=== PATIENT | male | born 1995 | race Caucasian/White ===

== ENCOUNTER 2017-04-18 22:03 | Emergency (ER) | payer SELFPAY ==
[2017-04-18 22:24] VITALS: BP 153/73
[2017-04-18] MEDS ORDERED: BUPIVACAINE HCL 0.5 % INJ/PF 30 ML SDV INJ ONE (22:52)
[2017-04-18] MEDS ORDERED: PENICILLIN V POTASSIUM 500 MG TABLET PO ONE (22:52)
[2017-04-18] MEDS ORDERED: LIDOCAINE 2% VISCOUS SOLN 20 ML UDCUP PO ONE (23:12)
--- NOTE | 2017-04-18 23:13 | ER Document Report ---
HPI - HPI Patient complains to provider of: Toothache Pain Level: 5 Context: Patient is a 21-year-old male presents emergency department complaining of left upper jaw pain that started this morning. Patient has been taking Tylenol Motrin to today. Denies any fevers or chills, foul odor or foul drainage, difficulty swallowing, difficulty breathing or significant facial swelling. Patient is a current smoker. Past Medical History - Social History Smoking Status: Unknown if Ever Smoked Family History: Reviewed & Not Pertinent Patient has suicidal ideation: No Patient has homicidal ideation: No Renal/ Medical History: Denies: Hx Peritoneal Dialysis Past Surgical History: Reports: Hx Orthopedic Surgery - LUE - Immunizations Hx Diphtheria, Pertussis, Tetanus Vaccination: Yes Vertical Provider Document - CONSTITUTIONAL Agree With Documented VS: Yes Notes: PHYSICAL EXAM GENERAL: Alert, interacts well. HEENT: NCAT, pale conjunctiva, extraocular movements intact, pupils PERRL. Tenderness of tooth #18 with surrounding gingival inflammation without any evidence of abscess. MMM, Uvula midline. Airway patent. No evidence of tonsillar enlargement, peritonsillar abscess, retropharyngeal abscess. LUNGS: Clear to auscultation bilaterally, no wheezes, rales, or rhonchi. No respiratory distress. HEART: Regular rate and rhythm. No murmurs, gallops, or rubs. NEUROLOGICAL: Alert and oriented x4. Normal speech. PSYCH: Normal affect, normal mood. SKIN: Warm, dry, normal turgor. No rashes or lesions noted. - INFECTION CONTROL TRAVEL OUTSIDE OF THE U.S. IN LAST 30 DAYS: No - RESPIRATORY O2 Sat by Pulse Oximetry: 98 Course - Re-evaluation Re-evalutation: 04/18/17 23:12 Patient is a 21-year-old male presents with a toothache. He is hemodynamically stable, no acute distress afebrile. Presentation is most consistent with likely an infected tooth. Airway is patent. Vitals within normal limits. Patient is able swallow without any difficulty. There is no significant facial swelling. Patient will be started on antibiotics. I've instructed to follow-up with dentistry as earliest ability for definitive management. Return precautions and follow-up recommendations have been discussed at length. - Vital Signs Vital signs: Temp Pulse Resp BP Pulse Ox 98.9 F 78 18 153/73 H 98 04/18/17 22:22 04/18/17 22:22 04/18/17 22:22 04/18/17 22:22 04/18/17 22:22 Procedures - Additional Procedures Dental block Additional Procedures: Other - Patient received a left upper infra alveolar dental block utilizing 5 cc of 0.5% bupivacaine with significant improvement of his pain and no complications Discharge - Discharge Clinical Impression: Toothache Condition: Good Disposition: HOME, SELF-CARE Additional Instructions: TOOTHACHE: Your pain is due to dental decay. The tooth must be repaired in order for you to feel better. You will, therefore, be referred to a dentist. We do not have dentists on the staff at [facility]. Severe swelling or drainage around a tooth usually means a dental abscess. This also requires evaluation and treatment by the dentist, but antibiotics may be prescribed while awaiting dental treatment. You should be rechecked immediately if you develop major swelling of the face, increasing pain, a lump in the jaw or gums, headache, difficulty swallowing, or fever. PENICILLIN V K: You have been given a prescription for Penicillin VK. Your physician has determined that this is the best antibiotic for your condition. Pen VK can be taken with meals, however more of the antibiotic gets into the bloodstream if it's taken on an empty stomach. Penicillin usually has no side effects. However, allergy to penicillins is common. If you have had an allergic reaction to any drug of the penicillin family, you should never take any other penicillin. Notify your doctor at once if you develop hives, itching, swelling, faintness, or shortness of breath. FOLLOW-UP CARE: You have been referred for follow-up care to the dentists listed below. Call the dentists office for an appointment as you were instructed or within the next two days. If you experience worsening or a significant change in your symptoms, notify the physician immediately or return to the Emergency Department at any time for re-evaluation. [facility] [address] [place], [place] Tuesday mornings, by appointment [facility] [address] [place] [address] [facility] [place] [address] [facility] [address] [facility] [address] [facility] [address] [facility] [email or web address] [address] [place] [address] Tuesday- 8:00am to 5:00 pm Will see patients from other [facility]. Charges based on income and family size and accepts Medicare, Medicaid, and Insurances Will pull molars [facility] [phone] Hours of Operation 8:00 am - 4:30 pm weekdays The following dental offices accept Medicaid: [facility] Dr. Douglass Dr. [place] Dr. Naqvi Dr. Blair Ran Mosley, Ceci, and Berta oral surgery Dr. Chaudhry ([place]) Dr. Queen ([place]) [facility] Drs. Fischer and Josias ([place]) Dr. Burden ([place]) [facility] Dr. Brasher ([place]) Drs. Mccall and ([place]) Medicaid Care Line Prescriptions: Penicillin V Potassium [Penicillin Vk 500 mg Tablet] 500 mg PO TID 7 Days #21 tablet
== END 2017-04-18 23:26 | disposition home or self-care (01) ==
LOC: ER 22:03
DX: K08.89 Other specified disorders of teeth and supporting structures (principal); K05.10 Chronic gingivitis, plaque induced; F17.200 Nicotine dependence, unspecified, uncomplicated
CPT/HCPCS: 99282; 64400; J3490

== ENCOUNTER 2017-10-25 11:07 | Emergency (ER) | payer SELFPAY ==
[2017-10-25 11:31] VITALS: BP 140/83
--- NOTE | 2017-10-25 11:38 | ER Document Report ---
HPI - HPI Patient complains to provider of: rash Onset: Other - 3 days Onset/Duration: Worse Pain Level: 2 Context: Patient states he was working in the yard recently and got exposed to poison isis. Patient complains of pruritic skin rash to face, trunk and extremities. Associated Symptoms: denies: Fever, Headache Exacerbated by: Denies Relieved by: Denies Similar symptoms previously: Yes Recently seen / treated by doctor: No - ROS ROS below otherwise negative: Yes Systems Reviewed and Negative: Yes All other systems reviewed and negative - CONSTITUTIONAL Constitutional: DENIES: Fever - EENT EENT: DENIES: Sore Throat - NEURO Neurology: DENIES: Headache - GASTROINTESTINAL Gastrointestinal: DENIES: Nausea, Patient vomiting - DERM Skin Color: Erythema Skin Problems: Rash Past Medical History - General Information source: Patient - Social History Smoking Status: Current Every Day Smoker Smoking Education Provided: Yes Frequency of alcohol use: None Drug Abuse: None Occupation: [employer] Family History: Reviewed & Not Pertinent - Medical History Medical History: Negative Renal/ Medical History: Denies: Hx Peritoneal Dialysis Past Surgical History: Reports: Hx Orthopedic Surgery - LUE - Immunizations Hx Diphtheria, Pertussis, Tetanus Vaccination: Yes Vertical Provider Document - CONSTITUTIONAL Agree With Documented VS: Yes Exam Limitations: No Limitations General Appearance: WD/WN, No Apparent Distress - INFECTION CONTROL TRAVEL OUTSIDE OF THE [place]. IN LAST 30 DAYS: No - HEENT HEENT: Atraumatic, Normal ENT Exam, Normocephalic - NECK Neck: Normal Inspection, Supple - RESPIRATORY Respiratory: No Respiratory Distress - CARDIOVASCULAR Cardiovascular: Regular Rate, Regular Rhythm - BACK Back: Normal Inspection - MUSCULOSKELETAL/EXTREMETIES Musculoskeletal/Extremeties: MAEW - NEURO Level of Consciousness: Awake, Alert, Appropriate Motor/Sensory: No Motor Deficit - DERM Integumentary: Warm, Dry, Rash - Erythematous maculopapular rash scattered distribution to trunk face and extremities, areas in a linear pattern Course - Vital Signs Vital signs: Temp Pulse Resp BP Pulse Ox 97.6 F 74 18 140/83 H 98 10/25/17 11:29 10/25/17 11:29 10/25/17 11:29 10/25/17 11:29 10/25/17 11:29 Discharge - Discharge Clinical Impression: Contact dermatitis Qualifiers: Contact dermatitis type: unspecified Contact dermatitis trigger: non-food plants Qualified Code(s): L25.5 - Unspecified contact dermatitis due to plants, except food Condition: Stable Disposition: HOME, SELF-CARE Instructions: Poison Isis ([facility]), Steroid Medication Additional Instructions: Return immediately for any new or worsening symptoms Followup with your primary care provider, call tomorrow to make a followup appointment Use [id number] skin wash such as technu or Zanfel as directed Prescriptions: Hydroxyzine HCl [Atarax 25 mg Tablet] 1 - 2 tab PO QID #25 tablet Prednisone [Deltasone 5 mg Tablet] 5 mg PO ASDIR PRN #100 tablet PRN Reason: Forms: Return to Work Referrals: [facility] [Provider Group] - Follow up as needed
== END 2017-10-25 11:45 | disposition home or self-care (01) ==
LOC: ER 11:07
DX: L25.5 Unspecified contact dermatitis due to plants, except food (principal); F17.200 Nicotine dependence, unspecified, uncomplicated
CPT/HCPCS: 99282

== ENCOUNTER 2019-10-10 01:49 | Emergency (ER) | payer SELFPAY ==
[2019-10-10 02:55] LABS: ABSOLUTE EOSINOPHILS # (AUTO) 0.1 10^3/uL (0.0-0.6); ABSOLUTE LYMPHOCYTES (AUTO) 3.1 10^3/uL (0.5-4.7); ABSOLUTE MONOCYTES (AUTO) 0.8 10^3/uL (0.1-1.4); ABSOLUTE NEUT (AUTO) 6.9 10^3/uL (1.7-8.2); BASOPHILS % (AUTO) 0.2 % (0-2); EOSINOPHILS % (AUTO) 0.8 % (0-6); HEMATOCRIT 43.9 % (37.9-51.0); HEMOGLOBIN 15.2 g/dL (13.5-17.0); LYMPHOCYTES % (AUTO) 28.5 % (13-45); MEAN CORPUSCULAR HEMOGLOBIN 30.8 pg (27.0-33.4); MEAN CORPUSCULAR HGB CONC 34.7 g/dL (32.0-36.0); MEAN CORPUSCULAR VOLUME 89 fl (80-97); MONOCYTES % (AUTO) 7.1 % (3-13); PLATELET COUNT 307 10^3/uL (150-450); RED BLOOD COUNT 4.95 10^6/uL (4.35-5.55); RED CELL DISTRIBUTION WIDTH 13.4 % (11.5-14.0); SEGMENTED NEUTROPHILS % (AUTO) 63.4 % (42-78); TOTAL CELLS COUNTED % (AUTO) 100 %; WHITE BLOOD COUNT 10.9 10^3/uL (4.0-10.5)
[2019-10-10] MEDS ORDERED: ASPIRIN 81 MG TABLET, CHEWABLE PO ONE (02:59)
--- NOTE | 2019-10-10 03:05 | ER Document Report ---
ED Respiratory Problem - General Chief Complaint: Shortness Of Breath Stated Complaint: SHORTNESS OF BREATH Time Seen by Provider: 10/10/19 02:44 Primary Care Provider: MICKEY HAMMOND MD [Primary Care Provider] - Follow up as needed Mode of Arrival: Ambulatory Information source: Patient Notes: 24-year-old male presented to ED for complaint of shortness of breath and chest pain since clerical associate. He states he went to [place] about 3-4 o'clock this afternoon they told him that was nothing wrong with him and sent him home. He states the pain was continuing so he came to [place]. He states that ever since he had SVT about a month ago and they had to give him 6 mg and then 12 mg of adenosine he has not been right since. He states he had 2 other episodes of SVT and was able to vagal maneuvers and convert himself. He states he has been started on atenolol but he just does not feel right. He states he has a cardiology appointment in October but that he is scared to go to sleep sleep because every time he goes to sleep he feels like his chest hurts and is very short of breath. TRAVEL OUTSIDE OF THE U.S. IN LAST 30 DAYS: No - HPI Patient complains to provider of: Chest pain, Short of breath Onset: Other - See HPI Duration: Intermittent episodes Quality of pain: Achy Severity: Mild Pain Level: 1 Associated symptoms: Chest pain/discomfort, Short of breath Similar symptoms previously: Yes Recently seen / treated by doctor: Yes - Related Data Allergies/Adverse Reactions: No Known Allergies Allergy (Unverified 10/10/19 01:59) Past Medical History - General Information source: Patient - Social History Smoking Status: Current Every Day Smoker Cigarette use (# per day): Yes - 3/4 pack a day Smoking Education Provided: Yes - 4 minutes Frequency of alcohol use: None Drug Abuse: None Lives with: Family Family History: Reviewed & Not Pertinent Patient has suicidal ideation: No Patient has homicidal ideation: No - Past Medical History Cardiac Medical History: Reports: None Pulmonary Medical History: Reports: None EENT Medical History: Reports: None Neurological Medical History: Reports: None Endocrine Medical History: Reports: None Renal/ Medical History: Reports: None Malignancy Medical History: Reports None GI Medical History: Reports: None Musculoskeletal Medical History: Reports None Skin Medical History: Reports None Psychiatric Medical History: Reports: None Traumatic Medical History: Reports: None Infectious Medical History: Reports: None Past Surgical History: Reports: Hx Orthopedic Surgery - LUE - Immunizations Hx Diphtheria, Pertussis, Tetanus Vaccination: Yes Review of Systems - Review of Systems Constitutional: No symptoms reported EENT: No symptoms reported Cardiovascular: Chest pain Respiratory: Short of breath Gastrointestinal: No symptoms reported Genitourinary: No symptoms reported Male Genitourinary: No symptoms reported Musculoskeletal: No symptoms reported Skin: No symptoms reported Hematologic/Lymphatic: No symptoms reported Neurological/Psychological: No symptoms reported -: Yes All other systems reviewed and negative Physical Exam - Vital signs Vitals: Pulse BP Pulse Ox 77 123/57 L 99 10/10/19 01:55 10/10/19 01:55 10/10/19 01:55 Interpretation: Normal - General General appearance: Appears well, Alert - HEENT Head: Normocephalic, Atraumatic Eyes: Normal Pupils: PERRL - Respiratory Respiratory status: No respiratory distress Chest status: Nontender Breath sounds: Normal Chest palpation: Normal - Cardiovascular Rhythm: Regular Heart sounds: Normal auscultation Murmur: No - Abdominal Inspection: Normal Distension: No distension Bowel sounds: Normal Tenderness: Nontender Organomegaly: No organomegaly - Back Back: Normal, Nontender - Extremities General upper extremity: Normal inspection, Nontender, Normal color, Normal ROM, Normal temperature General lower extremity: Normal inspection, Nontender, Normal color, Normal ROM, Normal temperature, Normal weight bearing. No: Tom's sign - Neurological Neuro grossly intact: Yes Cognition: Normal Orientation: AAOx4 Elidia Coma Scale Eye Opening: Spontaneous Elidia Coma Scale Verbal: Oriented [place] Coma Scale Motor: Obeys Commands Elidia Coma Scale Total: 15 Speech: Normal Motor strength normal: LUE, RUE, LLE, RLE Sensory: Normal - Psychological Associated symptoms: Normal affect, Normal mood - Skin Skin Temperature: Warm Skin Moisture: Dry Skin Color: Normal Course - Re-evaluation Re-evalutation: 10/10/19 06:19 Chest x-ray is negative troponins are negative labs are negative. Patient is stable. He has been stable on the monitor overnight. He states he was just scared to go home with for daylight because he was afraid he would not wake back up. He has had no abnormalities on the monitor all night. 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 Patient was discharged home. - Vital Signs Vital signs: Temp Pulse Resp BP Pulse Ox 98 F 77 21 H 109/47 L 96 10/10/19 01:58 10/10/19 01:55 10/10/19 06:01 10/10/19 06:01 10/10/19 06:01 - Laboratory Result Diagrams: 10/10/19 02:32 10/10/19 02:32 Laboratory results interpreted by me: 10/10/19 10/10/19 02:32 02:32 WBC 10.9 H Glucose 154 H ALT 122 H - Diagnostic Test Radiology reviewed: Image reviewed, Reports reviewed Discharge - Discharge Clinical Impression: Shortness of breath Pain in the chest Qualifiers: Chest pain type: unspecified Qualified Code(s): R07.9 - Chest pain, unspecified Condition: Stable Disposition: HOME, SELF-CARE Additional Instructions: CHEST PAIN OF UNCLEAR CAUSE: The exact cause of your chest pain isn't clear. Fortunately, there is no evidence of a dangerous medical condition. Further testing may be required to find the source of the pain. Most often, we find that this pain is coming from the chest wall -- the muscles or rib joints in the chest. But chest pain can come from the lung and lung lining, the esophagus, the heart valves or heart lining, and even the stomach or gallbladder. Rest. Eat lightly until the pain is gone. We may prescribe medicine for pain and inflammation. You should call the physician immediately if the pain radiates to the shoulder, jaw or arms; if you start to run a fever or develop a cough; or if you develop shortness of breath, or other new or alarming symptoms. NORMAL EXAM AND WORKUP: At this time, your examination and workup show no significant abnormality. No significant abnormal physical findings were noted. All laboratory, EKG, and imaging (x-ray, CT scans, ultrasound) studies that were ordered show no significant abnormality. Although your examination and all studies that were ordered showed no significant abnormal finding, there are no examinations and no studies that are 100% accurate. There is always the possibility that some abnormality could exist and not be detected with physical examination or within the limits and capabilities of laboratory and other studies. You should return or follow up as you were instructed on your visit today for further evaluation if your symptoms do not resolve. ASPIRIN: Aspirin has been shown to have a beneficial effect on blood circulation by reducing the clotting effect of platelets in the blood. These beneficial effects can be achieved by taking just a single baby (81 mg) aspirin a day. It is recommended that any person over the age of forty take a single baby aspirin every day for heart and brain circulation, unless you are allergic to aspirin or have some significant bleeding disorder. It is strongly recommended that people who have proven cardiac or blood circulation disturbances should take a baby aspirin every day. Please follow-up with your steel wheel engraver as scheduled FOLLOW-UP CARE: If you have been referred to a physician for follow-up care, call the physicians office for an appointment as you were instructed or within the next two days. If you experience worsening or a significant change in your symptoms, notify the physician immediately or return to the Emergency Department at any time for re-evaluation. Referrals: MICKEY HAMMOND MD [Primary Care Provider] - Follow up as needed
[2019-10-10 03:23] LABS: ALKALINE PHOSPHATASE 76 U/L (38-126); ANION GAP 8 (5-19); ASPARTATE AMINO TRANSFERASE 42 U/L (17-59); BILIRUBIN,TOTAL 0.3 mg/dL (0.2-1.3); BLOOD UREA NITROGEN 15 mg/dL (7-20); CALCIUM 9.2 mg/dL (8.4-10.2); CARBON DIOXIDE 27 mmol/L (22-30); CHLORIDE 103 mmol/L (98-107); GLUCOSE 154 mg/dL (75-110); POTASSIUM 3.6 mmol/L (3.6-5.0); TOTAL PROTEIN 6.7 g/dL (6.3-8.2)
[2019-10-10 03:27] LABS: APPEARANCE,URINE CLEAR; BILIRUBIN,URINE NEGATIVE (NEGATIVE); COLOR,URINE YELLOW; GLUCOSE, URINE NEGATIVE (NEGATIVE); KETONES,URINE NEGATIVE (NEGATIVE); LEUKOCYTE ESTERASE,URINE NEGATIVE (NEGATIVE); NITRITE,URINE NEGATIVE (NEGATIVE); PROTEIN,URINE NEGATIVE (NEGATIVE); URINE SPECIFIC GRAVITY 1.015; UROBILINOGEN,URINE NEGATIVE mg/dL (<2.0)
[2019-10-10 03:41] LABS: URINE AMPHETAMINES SCREEN NEGATIVE; URINE BARBITURATES SCREEN NEGATIVE; URINE BENZODIAZEPINES SCREEN NEGATIVE; URINE COCAINE SCREEN NEGATIVE; URINE MARIJUANA (THC) SCREEN NEGATIVE; URINE METHADONE SCREEN NEGATIVE; URINE PHENCYCLIDINE SCREEN NEGATIVE
--- NOTE | 2019-10-10 04:43 | RADIOLOGY REPORT (SQ) ---
AP Portable chest: 10/10/2019 3:42 AM CDT History: 24-year old patient with chest pain. Comparison: None available Findings: The cardiomediastinal silhouette is normal in size. No pneumothorax is seen. No acute airspace opacities are seen. No discrete pleural effusion is apparent. Impression: No acute airspace opacities are seen.
[2019-10-10 06:06] VITALS: BP 109/47
--- NOTE | 2019-10-10 13:12 | EKG REPORT ---
SEVERITY:- NORMAL ECG - SINUS RHYTHM : Confirmed by: Radha Han 10-Oct-2019 13:10:55
== END 2019-10-10 06:28 | disposition home or self-care (01) ==
LOC: ER 01:49
DX: R06.02 Shortness of breath (principal); R07.9 Chest pain, unspecified; F17.210 Nicotine dependence, cigarettes, uncomplicated; I47.1 Supraventricular tachycardia; Z79.899 Other long term (current) drug therapy
CPT/HCPCS: 36415; 71045; 80053; 80307; 81001; 83735; 84443; 84484; 85025; 93005; 93010; 99285; 99406

== ENCOUNTER 2020-01-01 19:04 | Emergency (ER) | payer SELFPAY ==
--- NOTE | 2020-01-01 20:02 | ER Document Report ---
ED Medical Screen (RME) - General Chief Complaint: Other Stated Complaint: FEELS BLOATED Time Seen by Provider: 01/01/20 19:57 Primary Care Provider: MICKEY HAMMOND MD [Primary Care Provider] - Follow up as needed TRAVEL OUTSIDE OF THE U.S. IN LAST 30 DAYS: No - HPI Notes: 01/01/20 19:58 24 yr old male she of SVTs is having ablation done next month presents to the emergency room for upper abdominal pain that has been bothering him for the last 2 months with having nausea, no vomiting. Patient also reports he is having chunks of "undigested food" in his feces for the last 2 months. Denies any melena. Denies any black tarry stool. States this problem is becoming progressively worse. Patient states he does have a history of GERD does take Nexium for this patient was on metoprolol for his SVTs but states he has been off of it. Patient has not been seen by a provider for this issue. patient's medical support assistant dated when he goes to is a hospital again to have his thyroid checked. Denies any fevers chills, chest pain, shortness of breath. I have greeted and performed a rapid initial assessment of this patient. A comprehensive ED assessment and evaluation of the patient, analysis of test results and completion of the medical decision making process will be conducted by additional ED providers. PHYSICAL EXAMINATION: GENERAL: Well-appearing, well-nourished and in no acute distress. HEAD: Atraumatic, normocephalic. CV: s1, s2 regular LUNGS: No respiratory distress abd: RUQ abd tenderness on palpation, no cva tenderness appreciated bilaterally Musculoskeletal: Normal range of motion NEUROLOGICAL: Normal speech, normal gait. SKIN: Warm, Dry, normal turgor, no rashes or lesions noted. - Related Data Allergies/Adverse Reactions: No Known Allergies Allergy (Unverified 10/10/19 01:59) Past Medical History Renal/ Medical History: Denies: Hx Peritoneal Dialysis Past Surgical History: Reports: Hx Orthopedic Surgery - LUE - Immunizations Hx Diphtheria, Pertussis, Tetanus Vaccination: Yes Physical Exam - Vital signs Vitals: Temp Pulse Resp BP Pulse Ox 98.5 F 91 16 135/65 H 98 01/01/20 19:28 01/01/20 19:28 01/01/20 19:28 01/01/20 19:28 01/01/20 19:28 Course - Vital Signs Vital signs: Temp Pulse Resp BP Pulse Ox 98.5 F 91 16 135/65 H 98 01/01/20 19:28 01/01/20 19:28 01/01/20 19:28 01/01/20 19:28 01/01/20 19:28 Doctor's Discharge - Discharge Referrals: MICKEY HAMMOND MD [Primary Care Provider] - Follow up as needed
--- NOTE | 2020-01-01 20:47 | RADIOLOGY REPORT (SQ) ---
US ABDOMEN DOPPLER HISTORY: RUQ abd pain x 2m. COMPARISON: None. TECHNIQUE: Grayscale and color Doppler imaging of the abdomen was performed. FINDINGS: There is increased echogenicity of the hepatic parenchyma, likely representing hepatic steatosis. The main portal vein has normal hepatopetal flow. No shadowing gallstones are seen. No pericholecystic fluid or gallbladder wall thickening. The common bile duct is normal caliber. The pancreas is unremarkable. The spleen is normal in size. No hydronephrosis or shadowing renal stones are identified. The right kidney measures 11.1 cm and the left kidney measures 11.0 cm in length. The visualized portions of the IVC and aorta are patent. IMPRESSION: 1. No acute abdominal findings. 2. Hepatic steatosis.
[2020-01-01 21:07] LABS: ABSOLUTE EOSINOPHILS # (AUTO) 0.1 10^3/uL (0.0-0.6); ABSOLUTE LYMPHOCYTES (AUTO) 1.7 10^3/uL (0.5-4.7); ABSOLUTE MONOCYTES (AUTO) 0.5 10^3/uL (0.1-1.4); ABSOLUTE NEUT (AUTO) 5.7 10^3/uL (1.7-8.2); BASOPHILS % (AUTO) 0.5 % (0-2); EOSINOPHILS % (AUTO) 0.8 % (0-6); HEMATOCRIT 47.3 % (37.9-51.0); HEMOGLOBIN 16.7 g/dL (13.5-17.0); LYMPHOCYTES % (AUTO) 21.4 % (13-45); MEAN CORPUSCULAR HEMOGLOBIN 30.5 pg (27.0-33.4); MEAN CORPUSCULAR HGB CONC 35.3 g/dL (32.0-36.0); MEAN CORPUSCULAR VOLUME 87 fl (80-97); MONOCYTES % (AUTO) 6.5 % (3-13); PLATELET COUNT 316 10^3/uL (150-450); RED BLOOD COUNT 5.46 10^6/uL (4.35-5.55); RED CELL DISTRIBUTION WIDTH 12.8 % (11.5-14.0); SEGMENTED NEUTROPHILS % (AUTO) 70.8 % (42-78); TOTAL CELLS COUNTED % (AUTO) 100 %
[2020-01-01 21:24] LABS: ALBUMIN 4.8 g/dL (3.5-5.0); ALKALINE PHOSPHATASE 73 U/L (38-126); ANION GAP 11 (5-19); ASPARTATE AMINO TRANSFERASE 35 U/L (17-59); BILIRUBIN,DIRECT 0.3 mg/dL (0.0-0.4); BILIRUBIN,TOTAL 0.7 mg/dL (0.2-1.3); BLOOD UREA NITROGEN 13 mg/dL (7-20); CALCIUM 9.9 mg/dL (8.4-10.2); CARBON DIOXIDE 29 mmol/L (22-30); CHLORIDE 100 mmol/L (98-107); GLUCOSE 88 mg/dL (75-110); POTASSIUM 4.3 mmol/L (3.6-5.0); TOTAL PROTEIN 7.4 g/dL (6.3-8.2)
[2020-01-02] MEDS ORDERED: LORAZEPAM 1 MG TABLET PO ONE (00:36)
--- NOTE | 2020-01-02 00:42 | ER Document Report ---
ED General - General Chief Complaint: Abdominal Pain Stated Complaint: FEELS BLOATED Time Seen by Provider: 01/01/20 19:57 Primary Care Provider: MICKEY HAMMOND MD [NO LOCAL MD] - Follow up as needed TRAVEL OUTSIDE OF THE [place] IN LAST 30 DAYS: No - HPI Notes: Patient is a 24-year-old male who presents to the emergency department for evaluation of abdominal pain, dilated pupils, and "the feeling like I am on autopilot." His symptoms of all been going on for about a month. He states that about a month ago he was told that he needed a cardiac ablation for SVT. He since that over the last several weeks he has been having abdominal pain. It is in the right side of his abdomen, intermittently radiates up into his chest. Is present when he wakes up, when he goes to sleep. He describes it as a pressure. Is not changed by food. He has intermittent sharp pains, he cannot really tell me anything that brings is about. The pain is not radiating. He said no fevers or chills. He has had nausea but no emesis. No change in his pain with this food. He states that he has 2-3 bowel movements a day, which is normal for him. He states that he sees undigested food there. He states he notes that his pupils seem dilated when he looks in the mirror. He states he feels like he is living "on autopilot" and when asked if he could be depressed or anxious, he states "I do not know." He denies any suicidal or homicidal ideation. No visual or auditory hallucination. He states he just feels "like I am going to " and is having difficulty sleeping. - Related Data Allergies/Adverse Reactions: No Known Allergies Allergy (Unverified 10/10/19 01:59) Home Medications: Nexium, Tylenol Past Medical History - General Information source: Patient - Social History Smoking Status: Former Smoker Chew tobacco use (# tins/day): No Frequency of alcohol use: None Drug Abuse: None Family History: Reviewed & Not Pertinent, CAD - In grandparents - Past Medical History Cardiac Medical History: Reports: Other - SVT Renal/ Medical History: Denies: Hx Peritoneal Dialysis GI Medical History: Reports: Hx Gastroesophageal Reflux Disease Past Surgical History: Reports: Hx Orthopedic Surgery - LUE - Immunizations Hx Diphtheria, Pertussis, Tetanus Vaccination: Yes Review of Systems - Review of Systems Constitutional: See HPI EENT: See HPI Cardiovascular: No symptoms reported Respiratory: No symptoms reported Gastrointestinal: See HPI Genitourinary: No symptoms reported Musculoskeletal: No symptoms reported Skin: No symptoms reported Neurological/Psychological: See HPI Physical Exam - Vital signs Vitals: Temp Pulse Resp BP Pulse Ox 98.5 F 91 16 135/65 H 98 01/01/20 19:28 01/01/20 19:28 01/01/20 19:28 01/01/20 19:28 01/01/20 19:28 - Notes Notes: This is a mildly agitated 24-year-old male, who appears his stated age, no acute distress. Vital signs reviewed, please refer to chart. Head is normocephalic, atraumatic. Pupils equal round, reactive to light. Neck is supple without meningismus. Heart is regular rate and rhythm. Lungs are clear to auscultation bilaterally. Abdomen is soft, nontender, normoactive bowel sounds throughout. Extremities without cyanosis, clubbing. Posterior calves are nontender. Peripheral pulses are equal. Skin is warm and dry. Patient is awake, alert, neurological exam is nonfocal. Course - Re-evaluation Re-evalutation: 01/02/20 00:39 Patient presents to the emergency department for evaluation. He has multiple symptoms. They all seem to coincide with him being told that he will require a cardiac ablation. He complains of mydriasis, not really noted on exam today. He complains of upset stomach, and almost a dissociative sensation. My strong suspicion is that this is all related to stress and anxiety. I talked at length with the patient about this. We talked about guided meditation, CBT, and other interventions that may be helpful. He voiced understanding. Otherwise he is treated here with Ativan. His laboratory investigations are unremarkable. He has no urinary symptoms, I did cancel the urinalysis at this time. We will go ahead and give him 1 dose of Ativan here. I will give him referral on to gastro enterology and encouraged him strongly to follow-up with his primary care provider this week. He voiced understanding. He is to return to the ER with worsening or new concerning symptoms of any sort. - Vital Signs Vital signs: Temp Pulse Resp BP Pulse Ox 98.5 F 91 16 135/65 H 98 01/01/20 19:28 01/01/20 19:28 01/01/20 19:28 01/01/20 19:28 01/01/20 19:28 - Laboratory Result Diagrams: 01/01/20 20:46 01/01/20 20:46 Laboratory results interpreted by me: 01/01/20 20:46 ALT 75 H Discharge - Discharge Clinical Impression: Stress, Anxiety, Right sided abdominal pain Condition: Stable Disposition: HOME, SELF-CARE Instructions: Abdominal Pain ([facility]), Anxiety ([facility]) Additional Instructions: Consider medication, behavioral therapy, to help with your stress and anxiety levels. Discussed this with your primary care provider. He should also follow- up with gastroenterology in 1 to 2 weeks. If you develop increased pain, or worsening or new concerning symptoms of any sort, return immediately to the ER for further evaluation. Referrals: MICKEY HAMMOND MD [NO LOCAL MD] - Follow up as needed TOM MARTIN MD [ACTIVE STAFF] - Follow up as needed
[2020-01-02 00:50] VITALS: BP 149/85
== END 2020-01-02 00:51 | disposition home or self-care (01) ==
LOC: ER 19:04
DX: F43.9 Reaction to severe stress, unspecified (principal); F41.9 Anxiety disorder, unspecified; R10.9 Unspecified abdominal pain; R11.0 Nausea; K21.9 Gastro-esophageal reflux disease without esophagitis; Z79.899 Other long term (current) drug therapy; Z87.891 Personal history of nicotine dependence
CPT/HCPCS: 36415; 76700; 80053; 83690; 84443; 85025; 93976; 99284